=== PATIENT | male | born 1930 | race Caucasian/White ===

== ENCOUNTER 2016-07-06 18:47 | Inpatient (IN) | payer OTHER ==
--- NOTE | ~2016-07-06 | CN ---
Consultation Report [facility] [address] [place]. [address] NAME: TANI HUGO : [birth year] STATUS : ADM Edison PAT#: [id number] AGE: 86 ADM/REG DATE : 07/06/16 MR#: [id number] REPORT SERV DATE: 07/07/16 DICTATED BY: JORGE OSBORNE JR. DATE: 07/07/16 REPORT STATUS : Draft TRANSCRIBED BY: MODL DATE: 07/07/16 CARDIOLOGY CONSULT DATE OF CONSULTATION: 07/07/2016 REASON FOR CONSULTATION: New onset atrial flutter, 2:1 AV conduction. HISTORY OF PRESENT ILLNESS: An 86-year-old white male, smoker with chronic lung disease, and treated hypothyroidism, but no cardiac history reported to the emergency room after checking his pulse at home and finding it to be elevated, increasing shortness of breath. No definite angina. No palpitations. Since the emergency room, he has been on an amiodarone drip, but he is still conducting 2:1 at a rapid rate. Symptoms have not changed. He is borderline hypotensive. His initial troponin was 0.89, followed by 0.77. BNP elevated at 861. Normal TSH. Normocytic anemia with hemoglobin of 9.8. BUN and creatinine are [address] scan identified coronary calcification with a significant amount of dense calcification, a right middle lobe infiltrate, a large hiatal hernia. SOCIAL HISTORY: The patient just lost his one week ago, increased stress etc., tobacco user for years, pipe. FAMILY HISTORY: Noncontributory. ALLERGIES: SHELLFISH OR SHRIMP ALLERGY. MEDICATIONS: Home medication list reviewed. Hospital list reviewed. PHYSICAL EXAMINATION: VITAL SIGNS: Blood pressure 100/66, pulse is 138 and regular, respirations 20, afebrile. HEENT: No xanthelasma. NECK: Jugular venous distention is present at 30 degrees, no thyromegaly, no carotid bruit. LUNGS: Rhonchi are audible. No wheezes. COR: Heart tones are significantly diminished without definite murmur, gallop, or rub identified. ABD: Soft, nontender, no hepatosplenomegaly, no mass. EXT: No edema. Peripheral pulses are reduced. MS: Back without spine or costovertebral angle tenderness. NEURO: Symmetric findings. DISCUSSION: New onset atrial flutter with 2:1 AV conduction with increasing shortness of breath, baseline COPD, smoker. Suspect demand related troponin rise. No definite angina. Borderline hypotensive, on amiodarone alone. Add digitalis today for rate control. He has Consultation Report [address] [place]. [address] NAME: TANI HUGO : [birth year] STATUS : ADM Edison PAT#: [id number] AGE: 86 ADM/REG DATE : 07/06/16 MR#: [id number] REPORT SERV DATE: 07/07/16 DICTATED BY: JORGE OSBORNE JR. DATE: 07/07/16 REPORT STATUS : Draft TRANSCRIBED BY: MOY DATE: 07/07/16 already eaten. We will get a transthoracic echo today and arrange for a GENE, possible DC cardioversion tomorrow morning. Substitute Eliquis for heparin. Discontinue aspirin. Thank you for this consultation. MARLEE/MOY Jorge Osborne Jr., M.D. / [id number] CC: MD Che Gamboa M.D.
--- NOTE | ~2016-07-06 | HP ---
History And Physical [place] [id number] [facility] [place]. [address] NAME: TANI HUGO : [birth year] STATUS : ADM Edison PAT#: [id number] AGE: 86 ADM/REG DATE : 07/06/16 MR#: [id number] REPORT SERV DATE: 07/07/16 DICTATED BY: EDENILSON CROSS DATE: 07/07/16 REPORT STATUS : Draft TRANSCRIBED BY: MODL DATE: 07/07/16 DATE OF ADMISSION: 07/06/2016 CHIEF COMPLAINT: Rapid heart rate. HISTORY OF PRESENT ILLNESS: This is an 86-year-old male, who presents to the emergency room at [facility] with the above-mentioned complaint. History is obtained from the patient, and reviewing data available on the icomply System as well. According to Mr. Hugo, who is a reliable and good historian, he was in his usual state of health yesterday when he checked his pulse oximeter on his finger and found his heart rate to be 160, which was reported by the device. He actually did not feel any fluttering in his chest or any discomfort at all other than his chronic back pain. He did not have any chest pain, shortness of breath, or any other symptoms. He continued to monitor this and it constantly was over 160 and finally today he spoke to some of his neighbors and friends, who said he should go to the firehouse and have it checked, just in case his device was giving him wrong readings. There he was evaluated and ambulance was called and the patient was brought to the emergency room here because of the rapid heart rate. Incidentally, Mr. Hugo had just lost his six days ago and is quite cut-up about it. In the emergency room, indeed he had a rapid heart rate and EKG showed atrial flutter at a rate of 151. He was given a dose of adenosine without any response and ER physician had spoken to Dr. Alarcon, licensed direct entry midwife who advised the patient to be started on amiodarone after a bolus. The patient is currently on infusion. Dr. Alarcon also wanted Hospitalist Service to be admitting him tonight. At the time of my evaluation, he denied any chest pain or palpitations. He has no orthopnea. He denied any cough, hemoptysis, night sweats, or weight loss. He denied any fevers or chills, has had no recent loss of consciousness or falls. No history of nausea, vomiting, diarrhea, hematemesis, hematochezia, or hematuria. No other history of recent travel or exposures other than those mentioned above. PAST MEDICAL HISTORY: Significant for history of chronic anemia, COPD, scoliosis, and a right rotator cuff repair. He also has chronic COPD. SOCIAL HISTORY: He has about 82-pack year history of smoking and continues to do so. Denies any alcohol use or recreational drug use. FAMILY HISTORY: Noncontributory. MEDICATIONS: At home were reviewed by me in the chart today and reordered by me. REVIEW OF SYSTEMS: As in history of present illness. All other systems were reviewed in detail and are quite unremarkable. History And Physical [address] [address] NAME: TANI HUGO : [birth year] STATUS : ADM Edison PAT#: [id number] AGE: 86 ADM/REG DATE : 07/06/16 MR#: [id number] REPORT SERV DATE: 07/07/16 DICTATED BY: EDENILSON CROSS DATE: 07/07/16 REPORT STATUS : Draft TRANSCRIBED BY: MOY DATE: 07/07/16 PHYSICAL EXAMINATION: GENERAL: This is a pleasant 86-year-old, who is not in any acute distress. HEENT: His head is atraumatic, normocephalic. He is alert, awake, oriented to time, place, and person. His pupils are equal, reacting to light and accommodating. External ocular muscles are intact. Membranes are moist and pink. Sclerae are nonicteric. NECK: Supple with no jugular venous distention, lymphadenopathy, or thyromegaly. LUNGS: Clear to auscultation with no wheezes, rubs, or crackles. HEART: Heart sounds were regular with no murmurs, rubs, or gallops. ABDOMEN: Soft, nontender. Bowel sounds are present. EXTREMITIES: Showed no cyanosis, clubbing, or edema. NEUROLOGIC: Grossly intact. No focal sensory or motor deficits. He was able to move all four extremities. Gait was not examined today. VITAL SIGNS: His vital signs today showed a temperature of 98.7, pulse 145, respirations 19 a minute, and blood pressure was 100/68, oxygen saturations were 96%, breathing 2 L of oxygen via nasal cannula. LABORATORY DATA: Reviewed on the icomply system showed a sodium of 140, potassium 4.4, chloride 110, and CO2 of 23, BUN was 27 with a creatinine of 1.01, blood glucose was 111. Magnesium was 2.3, calcium was 8.0. His troponin today was 0.89 and BNP was elevated at 861.4. His CBC was normal at 7700, hemoglobin was 9.8, hematocrit 28.9, which is down from his baseline, but that was in 2011. His MCV was 92.9 and platelet count was 271,000. His prothrombin time today was 15.2 with an INR of 1.2. Urinalysis was not done. Films of the CT of the chest were reviewed by me on the PACS today and interpreted by me. Official Radiology comment was also reviewed. Bilateral pleural effusions, right greater than left with an enlarged heart. Please see report for details. A 12-lead EKG done in emergency room was reviewed and interpreted by me. There is atrial flutter at a rate of [address] changes. IMPRESSION: 1. Atrial flutter. 2. Volume overload. 3. Bilateral pleural effusions. 4. Elevated troponin with [id number] myocardial infarction. 5. Chronic anemia. 6. Chronic obstructive pulmonary disease. 7. Scoliosis. 8. Right rotator cuff repair. PLAN: We will admit Mr. Hugo to the Hospitalist Service with telemetry for a 24-hour observation period. ER physician had spoken with Dr. Alarcon, who suggested amiodarone infusion after a bolus and this was started in the emergency room. We will follow this and consult Cardiology in the morning. We will also follow serial troponin levels and start him on a heparin infusion. His stool Hemoccult was negative in the ER per Dr. Bonner. We will also start him on gentle diuretics, follow daily weights and outputs. We will also place him on bronchodilator treatments, and continue supplemental oxygen therapy. We will also History And Physical [address] [place]. [address] NAME: TANI HUGO : [birth year] STATUS : ADM Edison PAT#: [id number] AGE: 86 ADM/REG DATE : 07/06/16 MR#: [id number] REPORT SERV DATE: 07/07/16 DICTATED BY: EDENILSON CROSS DATE: 07/07/16 REPORT STATUS : Draft TRANSCRIBED BY: MOY DATE: 07/07/16 continue his home medications as well. He did lose his six days ago and does admit to not taking his medications for a few days. He says, however, he has started taking his medications in the last two days. This may be one of the reasons for his arrhythmia as well. I have discussed the above plans with the patient. His questions were answered and he is agreeable to the above recommendations. Further recommendations will follow after Dr. Alarcon has had a chance to see him in the morning. Hospitalist Service will be following him during his stay. /MOY Edenilson Cross M.D. / [id number] CC: MD Che Gamboa M.D.
--- NOTE | ~2016-07-06 | DS ---
Discharge Summary [facility] [address] [place]. [address] NAME: TANI HUGO : [birth year] STATUS : DIS IN PAT#: [id number] AGE: 86 ADM/REG DATE : 07/06/16 MR#: [id number] REPORT SERV DATE: 07/10/16 DICTATED BY: BRYNN MAGANA DATE: 07/09/16 REPORT STATUS : Draft TRANSCRIBED BY: MOY DATE: 07/09/16 ADMISSION DATE: 07/06/2016 DISCHARGE DATE: 07/09/2016 CONSULTATION: 1. Cardiology Dr. Osborne. 2. Palliative Care, Dr. Block. DISCHARGE DIAGNOSES: 1. Atrial fibrillation with RVR. 2. Acute decompensated heart failure with reduced EF 15% to 20%. 3. Chronic obstructive pulmonary disease. 4. Cachexia. 5. Protein energy malnutrition due to poor nutritional intake. 6. Normocytic anemia. 7. Demand ischemia. 8. History of gastric ulcer. 9. Small bilateral pleural effusion. 10.Scoliosis. DISCHARGE CONDITION: Stable. HISTORY OF PRESENT ILLNESS: For detailed HPI, please make reference to Dr. Edenilson Madden's dictation on 07/07/2016. In brief, this is an 86-year-old male with medical history of COPD who presented to the emergency room with complaints of palpitation and heart rate in the 160s. In the ER, he was found to have blood pressure of 100/68, saturating at 96% on 2 L of oxygen, temperature 98.7, pulse rate of 145. Physical examination is consistent with irregularly irregular rhythm. S1 and S2. No murmurs. EKG shows atrial fibrillation, atrial flutter. The patient was admitted to the Hospitalist Service for management of atrial fibrillation with RVR. New onset atrial flutter with 2:1 AV conduction. Cardiology was consulted. Reviewed the patient's EKG, confirmed the presence of atrial flutter. The patient was started on amiodarone drip, received digoxin as well as beta cyndie. The patient's heart rate gradually trended down from the 160s to 140s and back to the 70s prior to discharge. The patient had an echocardiogram that shows no evidence of valvular disease. The patient was started on anticoagulation initially with heparin and was subsequently transitioned to Eliquis. The patient was advised to continue amiodarone, digitalis, beta cyndie, and digoxin as an outpatient. Acute decompensated heart failure with reduced EF. The patient had an echocardiogram that shows EF of 15% to 20% with hypokinesis of anteroseptal anterior and apical region. An extensive discussion was held with the patient as regard to possible intervention, the patient expressed his wish that he does not want any invasive or aggressive procedure, that Discharge Summary [place] [id number] [place]. [address] NAME: TANI HUGO : [birth year] STATUS : DIS IN PAT#: [id number] AGE: 86 ADM/REG DATE : 07/06/16 MR#: [id number] REPORT SERV DATE: 07/10/16 DICTATED BY: BRYNN MAGANA DATE: 07/09/16 REPORT STATUS : Draft TRANSCRIBED BY: MOY DATE: 07/09/16 he does not want to pursue any cardiac intervention at this point. Cardiology made the patient aware that he has a dismal prognosis given the significantly reduced left ventricular systolic function of the patient. The patient reported that he would rather go home and continue to live the remainder of his life without any artificial means to prolong his life. At this point, Palliative Care was consulted. Palliative Care had an extensive discussion with the patient. The patient understood the prognosis of not undergoing any intervention. The patient expressed a wish to be made DNR. The patient also expressed the wish to pursue hospice care. [facility] was contacted during this admission to follow the patient up at home. The patient requested to be discharged. To continue cardiac medications at home. Demand ischemia. The patient's troponin was significantly elevated on presentation. The patient had no evidence of chest pain. No acute T-wave changes on EKG. The patient's elevated troponin gradually trended down without any invasive cardiac intervention. Etiology of elevated troponin likely due to demand ischemia secondary to atrial fibrillation with rapid ventricular response as well as acute decompensated heart failure. The patient was advised to continue cardiac medication as prescribed by Cardiology and continue followup with primary care physician. Severe protein energy malnutrition. The patient was noted to be significantly cachectic, reported to have lost significant weight greater than 10 pounds prior to admission. The patient reported that he has had significant reduction in his p.o. intake due to recently losing his . He denies any depression, and he denies any suicidal or homicidal ideation. The patient was alert and oriented. The patient reported that he will rather prefer to take Ensure in addition to his regular meal. Ensure was prescribed during the course of this admission. The patient tolerated it well without any vomiting, nausea, or diarrhea. The patient was advised to continue to increase his calorie intake and continue nutritional supplement with Ensure at home. DISCHARGE MEDICATIONS: 1. Apixaban 2.5 mg p.o. b.i.d. 2. Amiodarone 400 mg p.o. b.i.d. for one week, then 200 mg b.i.d. 3. Coreg 3.125 mg p.o. b.i.d. 4. Vitamin D 1000 units p.o. daily. 5. Digoxin 0.125 mg p.o. q.48 hours. 6. Iron 300 mg p.o. at bedtime. 7. Synthroid 50 mcg p.o. daily. 8. Multivitamins one tab p.o. daily. 9. Vitamin E 400 units cap p.o. at bedtime. DISCHARGE DISPOSITION: Home with hospice. DISCHARGE ACTIVITY: As tolerated. DISCHARGE DIET: As tolerated. Greater than 35 minutes was used to prepare this patient's discharge, reconcile medication, Discharge Summary [address] [address] NAME: TANI HUGO : [birth year] STATUS : DIS IN PAT#: [id number] AGE: 86 ADM/REG DATE : 07/06/16 MR#: [id number] REPORT SERV DATE: 07/10/16 DICTATED BY: BRYNN MAGANA DATE: 07/09/16 REPORT STATUS : Draft TRANSCRIBED BY: MODL DATE: 07/09/16 advise the patient on discharge plans, and followup. IOO/MODL Brynn Magana MD / [id number] CC: MD Che Gamboa M.D. James Hoback Jr., M.D. Robert Warren Goldmann, M.D.
[~2016-07-06 18:47] MED LIST: CALTRA600D PO; CENTRUM TAB1 TAB PO; IRON325 MG PO; PRIM250 PO
[2016-07-06 21:36] LABS: BASOPHILS 0.1 %; BASOPHILS ABSOLUTE 0.01 10/3/uL (0.0-0.16); EOSINOPHILS 1.4 %; EOSINOPHILS ABSOLUTE 0.11 10/3/uL (0.0-0.53); ER CBC TAT 0 Hrs 03 Mins; HEMATOCRIT 28.9 % (40.0-51.0); HEMOGLOBIN 9.8 g/dL (13.6-17.8); IMMATURE GRANULOCYTES 0.3 %; IMMATURE GRANULOCYTES ABSOLUTE 0.02 10/3/uL (0.0-0.11); LYMPHOCYTES 13.5 %; LYMPHOCYTES ABSOLUTE 1.03 10/3/uL (0.67-4.30); MANUAL DIFF NO %; MEAN CORPUS HGB CONC 33.9 g/dL (32.0-36.0); MEAN CORPUSCULAR HEMOGLOB 31.5 pg (26.0-34.0); MEAN CORPUSCULAR VOLUME 92.9 fL (80-100); MEAN PLATELET VOLUME 10.5 fL (9.2-13.0); MONOCYTES ABSOLUTE 0.38 10/3/uL (0.21-1.20); NEUTROPHILS 79.7 %; PLATELET COUNT 271 10/3/uL (150-400); RBC DISTRIBUTION WIDTH 13.4 % (12.0-16.0); RED CELL COUNT 3.11 10/6/uL (4.7-6.1); WHITE BLOOD CELLS 7.7 10/3/uL (4.5-10.5)
[2016-07-06 21:44] LABS: INTERNATIONAL NORMAL RATI 1.2 UNITS (-); PARTIAL THROMBO TIME 37.6 SEC (22.5-37.2)
[2016-07-06 21:48] LABS: PROTIME (NOT ORD) 15.2 SEC (12.0-14.5)
[2016-07-06 22:03] LABS: CHLORIDE, SERUM 110 MMOL/L (96-112); CREATININE 1.01 MG/DL (0.70-1.30); GFR AFRICAN AMERICAN 77 ML/MIN (>=60); GFR NON AFRICAN AMERICAN 66 ML/MIN (>=60); POTASSIUM, SERUM 4.4 MMOL/L (3.5-5.3); SODIUM, SERUM 140 MMOL/L (135-148)
[2016-07-06 22:04] LABS: BUN (BLOOD UREA NITROGEN) 27 MG/DL (6-23); CO2 (CARBON DIOXIDE) 23 MMOL/L (24-34); GLUCOSE, SERUM 111 MG/DL (60-99); TROPONIN I 0.89 NG/ML (<0.05)
[2016-07-06 22:05] LABS: CHEST PAIN PROFILE TAT 0 Hrs 31 Mins
[2016-07-07] MEDS ORDERED: SYN.05 PO (00:25)
[2016-07-07] MEDS ORDERED: FERROUS SULFATE PO (00:25)
[2016-07-07] MEDS ORDERED: VITAMIN E OTC PO (00:26)
[2016-07-07] MEDS ORDERED: ASAB PO (00:26)
[2016-07-07] MEDS ORDERED: VITAMIN D31000 UNIT PO (00:26)
[2016-07-07] MEDS ORDERED: OPTIVITE PO (00:27)
[2016-07-07 07:18] LABS: BUN (BLOOD UREA NITROGEN) 25 MG/DL (6-23); CALCIUM, SERUM 8.6 MG/DL (8.5-10.4); CHLORIDE, SERUM 108 MMOL/L (96-112); CREATININE 1.16 MG/DL (0.70-1.30); GFR AFRICAN AMERICAN 65 ML/MIN (>=60); GFR NON AFRICAN AMERICAN 56 ML/MIN (>=60); POTASSIUM, SERUM 4.4 MMOL/L (3.5-5.3); SODIUM, SERUM 136 MMOL/L (135-148)
[2016-07-07 07:19] LABS: CO2 (CARBON DIOXIDE) 18 MMOL/L (24-34); GLUCOSE, SERUM 136 MG/DL (60-99); PHOSPHORUS, SERUM 2.9 MG/DL (2.5-4.5); TROPONIN I 0.77 NG/ML (<0.05)
[2016-07-07 18:25] LABS: BASOPHILS 0.2 %; BASOPHILS ABSOLUTE 0.02 10/3/uL (0.0-0.16); EOSINOPHILS 0.5 %; EOSINOPHILS ABSOLUTE 0.04 10/3/uL (0.0-0.53); HEMATOCRIT 30.2 % (40.0-51.0); HEMOGLOBIN 10.2 g/dL (13.6-17.8); IMMATURE GRANULOCYTES 0.1 %; IMMATURE GRANULOCYTES ABSOLUTE 0.01 10/3/uL (0.0-0.11); LYMPHOCYTES 15.4 %; LYMPHOCYTES ABSOLUTE 1.25 10/3/uL (0.67-4.30); MEAN CORPUS HGB CONC 33.8 g/dL (32.0-36.0); MEAN CORPUSCULAR HEMOGLOB 31.5 pg (26.0-34.0); MEAN CORPUSCULAR VOLUME 93.2 fL (80-100); MEAN PLATELET VOLUME 10.9 fL (9.2-13.0); MONOCYTES ABSOLUTE 0.65 10/3/uL (0.21-1.20); NEUTROPHILS 75.8 %; NEUTROPHILS ABSOLUTE 6.14 10/3/uL (2.02-8.40); PLATELET COUNT 318 10/3/uL (150-400); RBC DISTRIBUTION WIDTH 13.5 % (12.0-16.0); RED CELL COUNT 3.24 10/6/uL (4.7-6.1); WHITE BLOOD CELLS 8.1 10/3/uL (4.5-10.5)
[2016-07-07 18:26] LABS: MANUAL DIFF NO %
[2016-07-08 06:56] LABS: BASOPHILS 0.2 %; BASOPHILS ABSOLUTE 0.02 10/3/uL (0.0-0.16); EOSINOPHILS 0.8 %; EOSINOPHILS ABSOLUTE 0.07 10/3/uL (0.0-0.53); HEMATOCRIT 29.9 % (40.0-51.0); IMMATURE GRANULOCYTES 0.4 %; IMMATURE GRANULOCYTES ABSOLUTE 0.03 10/3/uL (0.0-0.11); LYMPHOCYTES 14.1 %; LYMPHOCYTES ABSOLUTE 1.19 10/3/uL (0.67-4.30); MEAN CORPUS HGB CONC 33.4 g/dL (32.0-36.0); MEAN CORPUSCULAR HEMOGLOB 31.1 pg (26.0-34.0); MEAN CORPUSCULAR VOLUME 92.9 fL (80-100); MEAN PLATELET VOLUME 10.8 fL (9.2-13.0); MONOCYTES 6.3 %; MONOCYTES ABSOLUTE 0.53 10/3/uL (0.21-1.20); NEUTROPHILS 78.2 %; NEUTROPHILS ABSOLUTE 6.57 10/3/uL (2.02-8.40); PLATELET COUNT 322 10/3/uL (150-400); RBC DISTRIBUTION WIDTH 13.5 % (12.0-16.0); RED CELL COUNT 3.22 10/6/uL (4.7-6.1); WHITE BLOOD CELLS 8.4 10/3/uL (4.5-10.5)
[2016-07-08 07:04] LABS: MANUAL DIFF NO %
[2016-07-08 07:17] LABS: ALBUMIN 2.5 G/DL (3.5-5.0); BUN (BLOOD UREA NITROGEN) 27 MG/DL (6-23); CALCIUM, SERUM 8.3 MG/DL (8.5-10.4); CHLORIDE, SERUM 105 MMOL/L (96-112); CK-MB 4.3 NG/ML; CO2 (CARBON DIOXIDE) 25 MMOL/L (24-34); CPK 68 U/L (0-200); DIGOXIN 0.7 NG/ML (0.8-2.0); GFR AFRICAN AMERICAN 52 ML/MIN (>=60); GFR NON AFRICAN AMERICAN 45 ML/MIN (>=60); GLUCOSE, SERUM 105 MG/DL (60-99); PHOSPHORUS, SERUM 3.4 MG/DL (2.5-4.5); POTASSIUM, SERUM 4.1 MMOL/L (3.5-5.3); SODIUM, SERUM 140 MMOL/L (135-148)
[2016-07-09 07:37] LABS: BASOPHILS 0.2 %; BASOPHILS ABSOLUTE 0.02 10/3/uL (0.0-0.16); EOSINOPHILS 1.6 %; EOSINOPHILS ABSOLUTE 0.13 10/3/uL (0.0-0.53); HEMATOCRIT 30.7 % (40.0-51.0); HEMOGLOBIN 10.3 g/dL (13.6-17.8); IMMATURE GRANULOCYTES 0.2 %; IMMATURE GRANULOCYTES ABSOLUTE 0.02 10/3/uL (0.0-0.11); LYMPHOCYTES 14.7 %; LYMPHOCYTES ABSOLUTE 1.19 10/3/uL (0.67-4.30); MEAN CORPUS HGB CONC 33.6 g/dL (32.0-36.0); MEAN CORPUSCULAR VOLUME 92.5 fL (80-100); MEAN PLATELET VOLUME 10.9 fL (9.2-13.0); MONOCYTES 6.3 %; MONOCYTES ABSOLUTE 0.51 10/3/uL (0.21-1.20); NEUTROPHILS ABSOLUTE 6.21 10/3/uL (2.02-8.40); PLATELET COUNT 323 10/3/uL (150-400); RBC DISTRIBUTION WIDTH 13.3 % (12.0-16.0); RED CELL COUNT 3.32 10/6/uL (4.7-6.1); WHITE BLOOD CELLS 8.1 10/3/uL (4.5-10.5)
[2016-07-09 07:40] LABS: MANUAL DIFF NO %
[2016-07-09 07:51] LABS: BUN (BLOOD UREA NITROGEN) 34 MG/DL (6-23); CALCIUM, SERUM 8.6 MG/DL (8.5-10.4); CHLORIDE, SERUM 107 MMOL/L (96-112); CO2 (CARBON DIOXIDE) 26 MMOL/L (24-34); CREATININE 1.31 MG/DL (0.70-1.30); GFR AFRICAN AMERICAN 56 ML/MIN (>=60); GFR NON AFRICAN AMERICAN 48 ML/MIN (>=60); GLUCOSE, SERUM 92 MG/DL (60-99); POTASSIUM, SERUM 4.3 MMOL/L (3.5-5.3); SODIUM, SERUM 140 MMOL/L (135-148)
[2016-07-09] MEDS ORDERED: ELIQUIS 2.5 MG2.5 MG PO (15:41)
[2016-07-09] MEDS ORDERED: PACERONE200 MG PO (15:47)
[2016-07-09] MEDS ORDERED: COREG3 PO (15:53)
[2016-07-09] MEDS ORDERED: LAN125 PO (15:53)
== END 2016-07-09 17:07 | disposition hospice, home (50) | DRG 291 ==
LOC: ER 18:47 → 7NO 19:47
PROVIDERS: Emergency Medicine; Hospitalist; Internal Medicine Cardiovascular Disease; Internal Medicine Pulmonary Disease
DX: I50.21 Acute systolic (congestive) heart failure (principal); E43 Unspecified severe protein-calorie malnutrition; J90 Pleural effusion, not elsewhere classified; I48.92 Unspecified atrial flutter; R64 Cachexia; J44.9 Chronic obstructive pulmonary disease, unspecified; I24.8 Other forms of acute ischemic heart disease; M41.9 Scoliosis, unspecified; I44.1 Atrioventricular block, second degree; I48.91 Unspecified atrial fibrillation; I25.5 Ischemic cardiomyopathy; D64.9 Anemia, unspecified; F17.210 Nicotine dependence, cigarettes, uncomplicated; Z51.5 Encounter for palliative care; E03.9 Hypothyroidism, unspecified; Z68.22 Body mass index [BMI] 22.0-22.9, adult; Z66 Do not resuscitate
CPT/HCPCS: 71010; 71250; 80048; 80069; 80162; 82330; 82550; 82553; 83735; 83880; 84100; 84443; 84484; 85025; 85610; 85730; 87040; 93005; 93306; 94640; 96365; 96375; 97116-GP; 97162-GP; 99291; A9270-GY; G8978-CJ-GP; G8979-CI-GP; J0153; J0282; J1160; J1940